=== PATIENT | male | born 1940 | race Caucasian/White ===

== ENCOUNTER 2023-07-01 09:49 | Outpatient (CLI) | payer MEDICARE ==
[2023-07-01 11:13] LABS: Hematocrit 46.6 % (38.8-50.0); Hemoglobin 15.1 g/dL (13.5-17.5); Mean Corpuscular HGB CONC 32.4 g/dL (32.0-36.0); Mean Corpuscular Hemoglobin 30.1 pg (27.0-33.0); Mean Corpuscular Volume 92.8 fl (81.2-95.1); Mean Platelet Volume 10.4 fl (7.4-10.4); Platelet Count 179 10x3/uL (150-450); RBC Distribution Width 12.5 % (11.5-14.5); Red Blood Cell (RBC) Count 5.02 10x6/uL (4.32-5.72); White Blood Cell (WBC) Count 6.8 10x3/uL (3.5-10.5)
[2023-07-01 11:47] LABS: Anion Gap 12 mmol/L (10-20); BUN (Urea Nitrogen) 25 mg/dL (8.4-25.7); Calc. Creatinine Clearance 0 mL/min (70-130); Calcium 9.3 mg/dL (7.8-10.44); Carbon Dioxide 25 mmol/L (23-31); Chloride 107 mmol/L (98-107); Estimated GFR 54; Glucose 87 mg/dL (83-110); Potassium 4.9 mmol/L (3.5-5.1); Sodium 139 mmol/L (136-145)
[2023-07-01 11:49] LABS: INR-International Normal Ratio 1.1; PTT 26.8 sec (22.0-33.0); Prothrombin Time 11.4 sec (9.5-12.1)
== END 2023-07-01 09:50 | disposition home or self-care (01) ==
LOC: LABBT 09:49
PROVIDERS: ATTEND Urology
DX: Z01.812 Encounter for preprocedural laboratory examination (principal); R82.998 Other abnormal findings in urine
CPT/HCPCS: 80048; 85027; 85610; 85730; 87086

== ENCOUNTER 2023-07-07 09:56 | Observation (INO) | payer MEDICARE ==
[2023-07-07] MEDS ORDERED: Lidocaine 1% MPF 2 ML VIAL ONE (10:44)
[2023-07-07] MEDS ORDERED: Iopamidol 30 ML ONE (11:06)
[2023-07-07] MEDS ORDERED: fentaNYL PF 100 MCG/2 ML SYRINGE ONE (11:19)
[2023-07-07] MEDS ORDERED: LevoFLOXacin 500 mg/D5W 100 ML BAG ONE (11:22)
[2023-07-07] MEDS ORDERED: Ondansetron PF 4 MG/2 ML Vial ONE (11:38)
[2023-07-07] MEDS ORDERED: Dexamethasone 20 MG/5 ML VIAL ONE (11:38)
[2023-07-07] MEDS ORDERED: PROPOFOL 200 MG/20 ML VIAL ONE (11:38)
[2023-07-07] MEDS ORDERED: Lidocaine 1% PF 5 ML VIAL ONE (11:38)
[2023-07-07] MEDS ORDERED: traMADol HCl 50 MG TAB PO PRN ×2 (15:50)
[2023-07-07] MEDS ORDERED: Hyoscyamine SL 0.125 MG TAB SL PRN (15:50)
[2023-07-07] MEDS ORDERED: Finasteride 5 MG TAB PO SCH (21:00)
[2023-07-07] MEDS ORDERED: Atorvastatin Calcium 20 MG TAB PO SCH (21:00)
[2023-07-08 00:18] VITALS: BMI 33.9
[2023-07-08] MEDS ORDERED: Atorvastatin Calcium 20 MG TAB PO SCH (09:00)
[2023-07-08] MEDS ORDERED: Cipro 250 MG TAB PO SCH (09:00)
[2023-07-08] MEDS ORDERED: Losartan 25 MG TAB PO SCH (09:00)
[2023-07-08] MEDS ORDERED: Finasteride 5 MG TAB PO SCH (09:00)
[2023-07-08 15:39] VITALS: BP 131/65; TEMP 97.9
== END 2023-07-08 16:40 | disposition home or self-care (01) ==
LOC: SDC 09:56 → SURG A 18:32
PROVIDERS: ADMIT Urology; ATTEND Urology
PROC: 0TBB8ZX Excision of Bladder, Via Natural or Artificial Opening Endoscopic, Diagnostic (ICD-10-PCS; principal; 2023-07-07)
PROC: 0TBD8ZX Excision of Urethra, Via Natural or Artificial Opening Endoscopic, Diagnostic (ICD-10-PCS; 2023-07-07)
DX: C67.4 Malignant neoplasm of posterior wall of bladder (principal); D09.0 Carcinoma in situ of bladder; I25.10 Atherosclerotic heart disease of native coronary artery without angina pectoris; I10 Essential (primary) hypertension; E78.5 Hyperlipidemia, unspecified; Z88.0 Allergy status to penicillin; Z79.899 Other long term (current) drug therapy
CPT/HCPCS: 52204; 74420; A4311; C1769; 88112; 88305; J1100; J1956; J2405; J2704; Q9967

== ENCOUNTER 2023-11-04 09:17 | Outpatient (CLI) | payer MEDICARE ==
[2023-11-04 10:03] LABS: Bilirubin Neg (Negative); Blood, Urine 150 (Negative); Clarity Cloudy (Clear); Glucose, Urine (Dipstick) Normal (Negative); Hematocrit 44.7 % (38.8-50.0); Hemoglobin 15.2 g/dL (13.5-17.5); Ketone, Urine Negative (Negative); Leukocyte 500 (Negative); Mean Corpuscular Hemoglobin 31.1 pg (27.0-33.0); Mean Corpuscular Volume 91.6 fl (81.2-95.1); Mean Platelet Volume 9.5 fl (7.4-10.4); Nitrite Negative (Negative); Platelet Count 200 10x3/uL (150-450); Protein, Urine (Dipstick) 30 mg/dl (Neg-Trace); RBC Distribution Width 12.4 % (11.5-14.5); Red Blood Cell (RBC) Count 4.88 10x6/uL (4.32-5.72); Specific Gravity, Urine 1.015 (1.005-1.030); White Blood Cell (WBC) Count 6.9 10x3/uL (3.5-10.5)
[2023-11-04 10:23] LABS: WBC/HPF Greater than 50 HPF (0-3)
[2023-11-04 10:24] LABS: Squamous Epithelial 0-3 HPF (0-3)
[2023-11-04 10:25] LABS: Bacteria/HPF 1+ HPF (None Seen)
[2023-11-04 10:26] LABS: PTT 26.9 sec (22.0-33.0); Prothrombin Time 10.6 sec (9.5-12.1)
[2023-11-04 10:40] LABS: Anion Gap 11 mmol/L (10-20); BUN (Urea Nitrogen) 26 mg/dL (8.4-25.7); Calc. Creatinine Clearance 0 mL/min (70-130); Calcium 9.2 mg/dL (7.8-10.44); Carbon Dioxide 26 mmol/L (23-31); Chloride 108 mmol/L (98-107); Estimated GFR 52; Glucose 76 mg/dL (83-110); Potassium 4.3 mmol/L (3.5-5.1); Sodium 141 mmol/L (136-145)
== END 2023-11-04 09:18 | disposition home or self-care (01) ==
LOC: LABBT 09:17
PROVIDERS: ATTEND Urology
DX: Z01.812 Encounter for preprocedural laboratory examination (principal); C67.9 Malignant neoplasm of bladder, unspecified; N40.0 Benign prostatic hyperplasia without lower urinary tract symptoms
CPT/HCPCS: 80048; 81001; 85027; 85610; 85730; 87077; 87086

== ENCOUNTER 2023-11-17 10:11 | Day surgery (SDC) | payer MEDICARE ==
[2023-11-04 09:53] VITALS: BMI 32.8
[2023-11-17] MEDS ORDERED: Vancomycin 1 GM/200 ML (FROZEN) BAG ONE (11:52)
[2023-11-17] MEDS ORDERED: PROPOFOL 20 ML ONE (12:49)
[2023-11-17] MEDS ORDERED: fentaNYL 50 mcg/mL 1 mL Vial ONE (12:49)
[2023-11-17] MEDS ORDERED: Iopamidol 30 ML ONE (12:50)
[2023-11-17] MEDS ORDERED: Lidocaine 1% PF 5 ML VIAL ONE (12:50)
[2023-11-17] MEDS ORDERED: Rocuronium Bromide 10 MG/ML (10ML VIAL) ONE (12:51)
[2023-11-17] MEDS ORDERED: Ondansetron PF 4 MG/2 ML Vial ONE (13:27)
[2023-11-17] MEDS ORDERED: PHENYLEPHRINE-NS 100 MCG/ML 10 ML SYRINGE ONE (13:27)
[2023-11-17] MEDS ORDERED: Dexamethasone 4 mg/ml Vial ONE (13:27)
[2023-11-17] MEDS ORDERED: SUGAMMADEX SODIUM 200 MG/2 ML VIAL ONE ×2 (13:46→13:55)
== END 2023-11-17 16:20 | disposition home or self-care (01) ==
LOC: SDC 10:11
PROVIDERS: ATTEND Urology
PROC: 0TBB8ZX Excision of Bladder, Via Natural or Artificial Opening Endoscopic, Diagnostic (ICD-10-PCS; principal; 2023-11-17)
DX: D09.0 Carcinoma in situ of bladder (principal); E78.00 Pure hypercholesterolemia, unspecified; K21.9 Gastro-esophageal reflux disease without esophagitis; Z88.0 Allergy status to penicillin; Z88.1 Allergy status to other antibiotic agents; Z98.890 Other specified postprocedural states; Z79.899 Other long term (current) drug therapy
CPT/HCPCS: 52204; 74420; J3010; J3370; 88305; J1100; J2405; J2704; Q9967

== ENCOUNTER 2024-08-08 09:20 | Outpatient (CLI) | payer MEDICARE ==
[2024-08-08 10:46] LABS: #Basophils 0.05 10x3/uL (0.0-0.2); %Basophils 0.9 % (0.0-1.0); %Eosinophils 3.8 % (0.0-10.0); %Lymphocytes 27.5 % (21.0-51.0); %Monocytes 9.5 % (0.0-10.0); Hemoglobin 14.2 g/dL (14.0-18.0); Mean Corpuscular HGB CONC 32.3 g/dL (32.0-36.0); Mean Corpuscular Hemoglobin 30.3 pg (27.0-31.0); Mean Corpuscular Volume 93.8 fL (78.0-98.0); Mean Platelet Volume 9.6 fL (7.4-10.4); Platelet Count 188 10x3/uL (130-400); RBC Distribution Width 12.9 % (11.5-14.5); Red Blood Cell (RBC) Count 4.69 mill/uL (4.70-6.10)
[2024-08-08 10:59] LABS: Prothrombin Time 13.1 sec (12.0-14.7)
[2024-08-08 11:00] LABS: PTT 30.2 sec (22.9-36.1)
[2024-08-08 11:03] LABS: Anion Gap 10 mmol/L (10-20); BUN (Urea Nitrogen) 25 mg/dL (8.4-25.7); Calc. Creatinine Clearance 0 mL/min (70-130); Calcium 8.8 mg/dL (7.8-10.44); Carbon Dioxide 28 mmol/L (23-31); Chloride 105 mmol/L (98-107); Estimated GFR 51; Glucose 101 mg/dL (83-110); Potassium 4.6 mmol/L (3.5-5.1); Sodium 138 mmol/L (136-145)
== END 2024-08-08 09:21 | disposition home or self-care (01) ==
LOC: LABBT 09:20
PROVIDERS: ATTEND Urology
DX: Z01.818 Encounter for other preprocedural examination (principal); C67.8 Malignant neoplasm of overlapping sites of bladder
CPT/HCPCS: 80048; 85025; 85610; 85730; 87077; 87086; 87186; 93005; 93010

== ENCOUNTER 2024-08-15 10:41 | Inpatient (IN) | payer MEDICARE ==
[2024-08-15] MEDS ORDERED: Vancomycin 1 GM/200 ML (FROZEN) BAG ONE (12:13)
[2024-08-15] MEDS ORDERED: Rocuronium Bromide 10 MG/ML (10ML VIAL) ONE (12:53)
[2024-08-15] MEDS ORDERED: PROPOFOL 20 ML ONE (12:54)
[2024-08-15] MEDS ORDERED: fentaNYL PF 100 MCG/2 ML SYRINGE ONE (12:54)
[2024-08-15] MEDS ORDERED: Lidocaine 1% PF 5 ML VIAL ONE (12:54)
[2024-08-15] MEDS ORDERED: Iopamidol 30 ML ONE (13:13)
[2024-08-15] MEDS ORDERED: PHENYLEPHRINE-NS 100 MCG/ML 10 ML SYRINGE ONE (13:58)
[2024-08-15] MEDS ORDERED: Dexamethasone 4 mg/ml Vial ONE (14:15)
[2024-08-15] MEDS ORDERED: Ondansetron PF 4 MG/2 ML Vial ONE (14:15)
[2024-08-15] MEDS ORDERED: ePHEDrine Sulfate 50 MG/10 ML VIAL ONE (14:55)
[2024-08-15] MEDS ORDERED: SUGAMMADEX SODIUM 200 MG/2 ML VIAL ONE (14:59)
[2024-08-15] MEDS ORDERED: traMADol HCl 50 MG TAB PO PRN (19:28)
[2024-08-15] MEDS ORDERED: Hyoscyamine SL 0.125 MG TAB SL PRN (19:29)
[2024-08-15] MEDS: Tamsulosin HCl 0.4 MG CAP PO SCH (21:13)
[2024-08-15] MEDS: Losartan 25 MG TAB PO SCH (21:13)
[2024-08-15] MEDS: LevoFLOXacin 500 MG TAB PO SCH (21:13)
[2024-08-15 21:48] VITALS: BMI 32.8
[2024-08-16 08:17] VITALS: TEMP 97.8
[2024-08-16] MEDS: Atorvastatin Calcium 20 MG TAB PO SCH (08:24)
[2024-08-16] MEDS: Pantoprazole DR 40 MG TAB PO SCH (08:24)
[2024-08-16 11:33] VITALS: BP 124/68
[2024-08-16] MEDS: Vancomycin 1 GM in Premix 1 BAG IVPB SCH (12:06)
== END 2024-08-16 13:35 | disposition home or self-care (01) | DRG 670 ==
LOC: SDC 10:41 → SURG B 18:39
PROVIDERS: ADMIT Urology; ATTEND Urology
PROC: 0TBB8ZX Excision of Bladder, Via Natural or Artificial Opening Endoscopic, Diagnostic (ICD-10-PCS; principal; 2024-08-15)
PROC: 0TBD8ZX Excision of Urethra, Via Natural or Artificial Opening Endoscopic, Diagnostic (ICD-10-PCS; 2024-08-15)
DX: D09.0 Carcinoma in situ of bladder (principal); I10 Essential (primary) hypertension; N40.1 Benign prostatic hyperplasia with lower urinary tract symptoms; K21.9 Gastro-esophageal reflux disease without esophagitis; E78.00 Pure hypercholesterolemia, unspecified; I25.10 Atherosclerotic heart disease of native coronary artery without angina pectoris; Z95.5 Presence of coronary angioplasty implant and graft; Z88.0 Allergy status to penicillin; Z79.899 Other long term (current) drug therapy; Z98.890 Other specified postprocedural states
CPT/HCPCS: 74420; 88305; J1100; J2405; J2704; J3370-JW; Q9967